=== PATIENT | male | born 1990 | race African-American/Black ===

== ENCOUNTER 2021-04-23 10:01 | Emergency (ER) | payer OTHER ==
[~2021-04-23] VITALS: Ht 188 cm; Wt 107.0 kg
--- NOTE | 2021-04-23 10:39 | NUR ---
PT PRESENTS WITH LEFT ANKLE PAIN WHEN BEARING WEIGHT. PT REPORTS INJURY X1 WEEK AGO DURING BASKETBALL PLAY WHEN PT HEARD AND FELT A POP IN HIS LT ANKLE.
--- NOTE | 2021-04-23 12:14 | NUR ---
LODGE OFFICER AT BEDSIDE FOR SPLINTING.
[2021-04-23 12:50] VITALS: BP 148/87
== END 2021-04-23 12:52 | disposition home or self-care (01) ==
LOC: ED 10:54
DX: S86.012A Strain of left Achilles tendon, initial encounter (principal); M79.662 Pain in left lower leg; W21.05XA Struck by basketball, initial encounter; Y93.67 Activity, basketball; Y92.89 Other specified places as the place of occurrence of the external cause; Y99.8 Other external cause status
CPT/HCPCS: 99284